=== PATIENT | female | born 1980 | race Caucasian/White ===

== ENCOUNTER 2016-08-28 22:00 | Emergency (ER) | payer BC ==
[~2016-08-28] VITALS: Ht 177.8 cm; Wt 70.5 kg
[2016-08-28 22:04] VITALS: PULSE 77; TEMP 98
[2016-08-28] MEDS ORDERED: AMOXICILLIN 8751 TAB PO (22:57)
[2016-08-28 23:11] VITALS: BP 126/68
[2016-12-08] MEDS ORDERED: SKYLA13.5 MG IY (11:36)
[2016-12-08] MEDS ORDERED: ZYRTEC ALLERGY10 MG PO (11:36)
[2016-12-08] MEDS ORDERED: EXCEDRIN TENSIO1 TAB PO (11:37)
[2016-12-08] MEDS ORDERED: NULECIT62.5 MG/5 IV (11:38)
== END 2016-08-28 23:12 | disposition home or self-care (01) ==
LOC: COL.ER 22:00
DX: S61.051A Open bite of right thumb without damage to nail, initial encounter (principal); W55.01XA Bitten by cat, initial encounter; Y92.009 Unspecified place in unspecified non-institutional (private) residence as the place of occurrence of the external cause

== ENCOUNTER 2016-12-10 11:00 | Outpatient (RCR) | payer BC ==
[2016-12-08 11:39] VITALS: BP 98/61; PULSE 63; TEMP 98
[~2016-12-10] VITALS: Ht 177.8 cm; Wt 69.0 kg
[~2016-12-10 11:00] MED LIST: AMOXICILLIN 8751 TAB PO; EXCEDRIN TENSIO1 TAB PO; NULECIT62.5 MG/5 IV; SKYLA13.5 MG IY; ZYRTEC ALLERGY10 MG PO
[2016-12-10 11:37] VITALS: BP 105/56; BP 89/58; PULSE 78; PULSE 92; TEMP 97.6; TEMP 97.8
== END 2016-12-10 12:43 | disposition home or self-care (01) ==
LOC: EUO 11:00
DX: E61.1 Iron deficiency (principal)
CPT/HCPCS: J2916